=== PATIENT | female | born 2000 | race Caucasian/White ===

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

== ENCOUNTER 2020-06-05 22:10 | Inpatient (IN) ==
[2020-06-05] MEDS ORDERED: SODIUM CHLORIDE 0.9% 1000ML 1,000 ML IV ONE ×2 (22:17→23:14)
--- NOTE | 2020-06-05 22:17 | Emergency Department Note ---
History of Present Illness General Chief complaint: Overdose (Intentional) Stated complaint: OVERDOSE Time Seen by Provider: 06/05/20 22:11 Source: patient and EMS Mode of arrival: EMS Limitations: altered mental status History of Present Illness Provider complaint: intentional overdose This is a 20-year-old female brought in by EMS from home after he reported intentional overdose. EMS reports that they were called after patient intentionally took 12 Advil PMs and drank alcohol one hour ago. They states she is also prescribed Zoloft and Ativan however states she did not take any of those. They also state she drank 4 alcoholic beverages this evening. They state she tells them that this is due to being fired today. Patient reports that she is upset because she went home an hour early on Wednesday after taking Ativan for panic attack and then today was told she was fired. Patient states she loves her job and because of this she tried to intentionally overdose is an active suicide. Patient states she has been treated as an inpatient for mental illness previously. [facility] States she has not followed up with her psychiatrist since then. States last medication jonna prieto was in January when they increased her Zoloft. Patient states the Ativan that she used on Wednesday for panic attack was the last that she had. States tonight she took Advil PM and drink alcohol. Patient denies overdosing on her Zoloft. Patient denies any additional coingestions. Patient admits to being depressed and suicidal due to losing her job. Patient denies any trauma or injury. Pt seen during a time of high acuity and national emergency pandemic while wearing PPE. Home Medications Home Medications Medication Instructions Recorded Confirmed Type Nexplanon 68 mg SUBDERMAL CONTINOUS 10/09/19 06/05/20 History sertraline [Zoloft] 75 mg PO QAM 10/09/19 06/05/20 History folic acid 1 mg PO QAM #7 tab 06/07/20 Rx gabapentin 600 mg PO Q12H #2 tab 06/07/20 Rx gabapentin 600 mg PO Q24H #1 tab 06/07/20 Rx multivitamin 1 tab PO DAILY #30 tab 06/07/20 Rx thiamine HCl (vitamin B1) [Vitamin 100 mg PO QAM #7 tab 06/07/20 Rx B-1] Allergies Allergy/AdvReac Type Severity Reaction Status Date / Time No Known Allergies Allergy Verified 06/05/20 23:04 Past Med/Surg History Medical History Asthma Contusion of right upper extremity (Acute) Dysfunctional uterine bleeding (Acute) IBS (irritable bowel syndrome) Lower abdominal pain (Acute) Pyelonephritis (Acute) Right-sided epistaxis (Acute) UTI (urinary tract infection) (Acute) Surgical History No pertinent past surgical history Family History Other Family history non-contributory Social History Smoking Status: Former smoker Tobacco Type: Smokeless Tobacco (Dip or Chew) Hx Alcohol Use: Yes Alcohol type: beer Hx Substance Use: No Preferred Language: Lao Communication Ability: Effective Visual Impairment: No Limitations Hearing Ability: Normal Beliefs That Will Affect Care: None Current Living Situation: Alone Feels Safe at Home: Yes Review of Systems See HPI for pertinent positives & negatives. and A total of 10 systems reviewed and were otherwise negative Physical Exam Vital Signs Vital Signs - 24 hr 06/05/20 22:15 06/05/20 22:17 06/05/20 22:30 Temperature 36.8 C Temperature Source Oral Pulse Rate 117 H 106 H 118 H Pulse Rate from SpO2 Sensor 116 H 119 H Pulse Rhythm Regular Pulse Strength Normal Respiratory Rate 24 16 26 H Respiratory Effort / Characteristics Non-Labored Respiratory Depth Normal Respiratory Pattern Regular Blood Pressure 136/113 H 139/99 136/99 Blood Pressure Mean 119 112 109 Blood Pressure Position Lying Pulse Oximetry 97 96 99 Oxygen Delivery Method Room Air Sepsis Recent Fever Within 48 Hours No Sepsis New/Unexplained Change in Mental Status N/A Sepsis Action Taken by Nursing No Action Required 06/05/20 22:31 06/05/20 23:00 06/05/20 23:01 Temperature Temperature Source Pulse Rate 113 H 89 88 Pulse Rate from SpO2 Sensor 113 H 88 88 Pulse Rhythm Pulse Strength Respiratory Rate 23 Respiratory Effort / Characteristics Respiratory Depth Respiratory Pattern Blood Pressure 132/90 Blood Pressure Mean 102 Blood Pressure Position Pulse Oximetry 98 97 97 Oxygen Delivery Method Sepsis Recent Fever Within 48 Hours Sepsis New/Unexplained Change in Mental Status Sepsis Action Taken by Nursing 06/05/20 23:30 06/05/20 23:31 06/06/20 00:00 Temperature Temperature Source Pulse Rate 81 83 92 H Pulse Rate from SpO2 Sensor 82 84 91 H Pulse Rhythm Pulse Strength Respiratory Rate 22 24 19 Respiratory Effort / Characteristics Respiratory Depth Respiratory Pattern Blood Pressure 114/66 Blood Pressure Mean 84 Blood Pressure Position Pulse Oximetry 97 98 100 Oxygen Delivery Method Sepsis Recent Fever Within 48 Hours Sepsis New/Unexplained Change in Mental Status Sepsis Action Taken by Nursing 06/06/20 00:10 Temperature Temperature Source Pulse Rate 101 H Pulse Rate from SpO2 Sensor 105 H Pulse Rhythm Pulse Strength Respiratory Rate 21 Respiratory Effort / Characteristics Respiratory Depth Respiratory Pattern Blood Pressure 130/101 H Blood Pressure Mean 113 Blood Pressure Position Pulse Oximetry 98 Oxygen Delivery Method Room Air Sepsis Recent Fever Within 48 Hours Sepsis New/Unexplained Change in Mental Status Sepsis Action Taken by Nursing GENERAL: alert, well appearing, well nourished, no distress, non-toxic, appears intoxicated EYE EXAM: normal conjunctiva, PERRL and EOM's grossly intact OROPHARYNX: no exudate, no erythema, lips, buccal mucosa, and tongue normal and mucous membranes are moist NECK: supple, no nuchal rigidity, no adenopathy, non-tender LUNGS: Clear to auscultation. Normal chest wall mechanics, no w/r/r HEART: no murmurs, S1 normal and S2 normal ABDOMEN: abdomen soft, non-tender, normo-active bowel sounds, no masses, no rebound or guarding. BACK: Back is symmetrical on inspection and there is no deformity, no midline tenderness, no CVA tenderness. SKIN: no rashes and no bruising UPPER EXTREMITIES: upper extremities are grossly normal. FROM, nml pulses b/l. No evidence of trauma or self-harm. LOWER EXTREMITIES: No pitting edema. FROM, nml pulses b/l. No evidence of trauma or self-harm. NEURO EXAM: Awake and alert, able to answer questions, cranial nerves II-XII grossly intact, slightly slurred speech, no gross weakness of arms, no gross weakness of legs. Gross sensation intact. Course Course 2249: Patient now reporting a nurse she took Tylenol PM and Ativan. Did not remember the time. [id number]: There is a friend, Socrates, now at bedside who states he had been with the patient earlier tonight at her house. States that she was upset and drinking red several ill because of losing her job today, however there was no indication to him that she would try to intentionally harm herself. States she did try to harm herself about 6 months ago, but since then he felt she was doing well. He states he left her house before 9, and got home to [place] and got a call from her mother that she had overdosed on her mother was calling 911 and so he turned around and immediately went back up to her house and got there at around 10:00. States when he arrived EMS was already there. He states it was his understanding from her that she took Advil PM. 0020: Discussed with Poison Control. Repeat EKG as a precaution. Diphenhydramine will take 4-6 hours to dissipate, likely during the same time she is sobering up. 0050: Case discussed with Dr. Turpin for additional mgmt. Administered Medications Discontinued Medications Enoxaparin Sodium (Lovenox) 30 mg SQ QAM [facility] Stop: 07/06/20 08:59 Last Admin: 06/07/20 09:19 Dose: 30 mg Documented by: [id number] Admin: 06/06/20 08:25 Dose: 30 mg Documented by: [id number] Folic Acid (Folvite) 1 mg PO QAM [facility] Stop: 07/06/20 08:59 Last Admin: 06/07/20 09:21 Dose: 1 mg Documented by: [id number] Admin: 06/06/20 08:23 Dose: 1 mg Documented by: [id number] Gabapentin (Neurontin) 1,200 mg PO NOW STA Stop: 06/06/20 01:19 Last Admin: 06/06/20 01:40 Dose: 1,200 mg Documented by: [id number] Gabapentin (Neurontin) 600 mg PO Q6H JO[facility] Stop: 06/06/20 13:25 Last Admin: 06/06/20 13:33 Dose: 600 mg Documented by: [id number] Admin: 06/06/20 08:23 Dose: 600 mg Documented by: [id number] Gabapentin (Neurontin) 600 mg PO Q8H JOSE Stop: 06/07/20 13:25 Last Admin: 06/07/20 14:10 Dose: 600 mg Documented by: [id number] Admin: 06/07/20 06:37 Dose: 600 mg Documented by: [id number] Admin: 06/06/20 21:07 Dose: 600 mg Documented by: [id number] Sodium Chloride (Nss 1000ml) 1,000 mls @ 999 mls/hr IV .Q1H1M ONE Stop: 06/05/20 23:17 Last Infusion: 06/05/20 23:36 Dose: 0 mls/hr Documented by: [id number] Admin: 06/05/20 22:40 Dose: 999 mls/hr Documented by: [id number] Sodium Chloride (Nss 1000ml) 1,000 mls @ 999 mls/hr IV .Q1H1M ONE Stop: 06/06/20 00:14 Last Infusion: 06/06/20 01:42 Dose: 0 mls/hr Documented by: [id number] Admin: 06/05/20 23:34 Dose: 999 mls/hr Documented by: [id number] Lactated Ringer's (Lr) 1,000 mls @ 200 mls/hr IV .Q5H STA Stop: 06/06/20 06:12 Last Infusion: 06/06/20 06:12 Dose: 0 mls/hr Documented by: [id number] Admin: 06/06/20 01:40 Dose: 200 mls/hr Documented by: [id number] Thiamine HCl 100 mg/ Syringe 10 mls @ 2 mls/min IV NOW STA Stop: 06/06/20 01:30 Last Admin: 06/06/20 01:41 Dose: 2 mls/min Documented by: [id number] Lactated Ringer's (Lr) 1,000 mls @ 100 mls/hr IV .Q10H JOSE Stop: 06/07/20 05:59 Last Infusion: 06/07/20 12:48 Dose: 0 mls/hr Documented by: [id number] Admin: 06/07/20 01:35 Dose: 100 mls/hr Documented by: [id number] Infusion: 06/07/20 01:35 Dose: 100 mls/hr Documented by: [id number] Admin: 06/06/20 16:09 Dose: 100 mls/hr Documented by: [id number] Infusion: 06/06/20 16:09 Dose: 200 mls/hr Documented by: [id number] Admin: 06/06/20 11:20 Dose: 200 mls/hr Documented by: [id number] Infusion: 06/06/20 11:11 Dose: 200 mls/hr Documented by: [id number] Admin: 06/06/20 06:11 Dose: 200 mls/hr Documented by: [id number] Potassium Chloride (Klor-Con M20) 40 meq PO NOW STA Stop: 06/05/20 23:27 Last Admin: 06/05/20 23:34 Dose: 40 meq Documented by: [id number] Potassium Chloride (Klor-Con M20) 40 meq PO ONE STA Stop: 06/06/20 01:22 Last Admin: 06/06/20 01:41 Dose: 40 meq Documented by: [id number] [facility] Stop: 07/06/20 08:59 Last Admin: 06/07/20 09:19 Dose: 75 mg Documented by: [id number] Admin: 06/06/20 08:23 Dose: 75 mg Documented by: [id number] Thiamine HCl (Vitamin B-1) [facility] Stop: 07/07/20 08:59 Last Admin: 06/07/20 09:21 Dose: 100 mg Documented by: [id number] Medical Decision Making Differential Diagnosis Differential diagnoses considered include mood disorder, infection, hypoglycemia, electrolyte abnormalities, cardiac sources, intracerebral event, toxicologic, neurologic, as well as others. Medical Records Attestation: I reviewed the patient's medical records. Home Medications Current Medication List: was personally reviewed by me Laboratory Data Attestation: I reviewed the patient's lab results. Result diagrams: 06/07/20 12:47 06/07/20 12:47 Lab Results 06/05/20 06/05/20 06/05/20 Range/Units 22:33 22:33 22:33 WBC 6.52 (4.8-10.8) K/uL RBC 4.55 (4.2-5.4) M/uL Hgb 15.0 (12.0-16.0) g/dL Hct 42.9 (37-47) % MCV 94.3 (80-100) fL MCH 33.0 (25-34) pg MCHC 35.0 (32-36) g/dL RDW Std Deviation 42.8 (36.4-46.3) fL RDW Coeff of Arun 12.6 (11.5-14.5) % Plt Count 218 (130-400) K/uL MPV 10.5 H (7.4-10.4) fL Immature Gran % (Auto) 0.2 % Neut % (Auto) 52.6 % Lymph % (Auto) 36.0 % [place] % (Auto) 10.3 % Eos % (Auto) 0.6 % Baso % (Auto) 0.3 % Neut # (Auto) 3.43 (1.4-6.5) K/uL Lymph # (Auto) 2.35 (1.2-3.4) K/uL [place] # (Auto) 0.67 H (0.11-0.59) K/uL Eos # (Auto) 0.04 (0-0.5) K/uL Baso # (Auto) 0.02 (0-0.2) K/uL Immature Gran # (Auto) 0.01 (0.00-0.02) K/uL PT 11.4 (9.0-12.0) Seconds INR 1.1 (0.9-1.1) Sodium 138 (136-145) mmol/L Potassium 2.7 L (3.5-5.1) mmol/L Chloride 106 (98-107) mmol/L Carbon Dioxide 25 (21-32) mmol/L Anion Gap 7.0 (3-11) BUN 6 L (7-18) mg/dl Creatinine 0.91 (0.6-1.2) mg/dl Est Cr Clr Drug Dosing 81.1 ml/min Est GFR ( Amer) 103.8 Est GFR (Non-Af Amer) 89.6 BUN/Creatinine Ratio 6.8 L (10-20) Glucose 126 H (70-99) mg/dl Calcium 9.1 (8.5-10.1) mg/dl Magnesium 2.6 H (1.8-2.4) mg/dl Total Bilirubin 0.4 (0.2-1) mg/dl AST 22 (15-37) U/L ALT 19 (12-78) U/L Alkaline Phosphatase 89 (45-117) U/L Troponin I < 0.015 (0-0.045) ng/ml Total Protein 8.7 H (6.4-8.2) gm/dl Albumin 4.4 (3.4-5.0) gm/dl Globulin 4.3 H (2.5-4.0) gm/dl Albumin/Globulin Ratio 1.0 (0.9-2) Lipase 1223 H (73-393) U/L TSH 1.040 (0.300-4.500) uIu/ml HCG, Qual (Negative) Urine Color Urine Appearance (Clear) Urine pH (4.5-7.5) Ur Specific [place] (1.000-1.030) Urine Protein (Negative) Urine Glucose (UA) (Negative) Urine Ketones (Negative) Urine Blood (Negative) Urine Nitrite (Negative) Urine Bilirubin (Negative) Urine Urobilinogen (Negative) Ur Leukocyte Esterase (Negative) Salicylates (2.8-20) mg/dl Urine Opiates Screen (Neg) Ur Methadone, Qual (Neg) Acetaminophen (10-30) ug/ml Urine Barbiturates (Neg) Ur Phencyclidine (PCP) (Neg) U Amphetamin/Meth Scrn (Neg) MDMA (Ecstasy) Screen (Neg) U Benzodiazepines Scrn (Neg) Ur Cocaine Metabolite (Neg) U Marijuana (THC) Screen (Neg) Ethyl Alcohol mg/dL (0-3) mg/dl 06/05/20 06/05/20 06/05/20 Range/Units 22:33 22:33 22:36 WBC (4.8-10.8) K/uL RBC (4.2-5.4) M/uL Hgb (12.0-16.0) g/dL Hct (37-47) % MCV (80-100) fL MCH (25-34) pg MCHC (32-36) g/dL RDW Std Deviation (36.4-46.3) fL RDW Coeff of Arun (11.5-14.5) % Plt Count (130-400) K/uL MPV (7.4-10.4) fL Immature Gran % (Auto) % Neut % (Auto) % Lymph % (Auto) % [place] % (Auto) % Eos % (Auto) % Baso % (Auto) % Neut # (Auto) (1.4-6.5) K/uL Lymph # (Auto) (1.2-3.4) K/uL [place] # (Auto) (0.11-0.59) K/uL Eos # (Auto) (0-0.5) K/uL Baso # (Auto) (0-0.2) K/uL Immature Gran # (Auto) (0.00-0.02) K/uL PT (9.0-12.0) Seconds INR (0.9-1.1) Sodium (136-145) mmol/L Potassium (3.5-5.1) mmol/L Chloride (98-107) mmol/L Carbon Dioxide (21-32) mmol/L Anion Gap (3-11) BUN (7-18) mg/dl Creatinine (0.6-1.2) mg/dl Est Cr Clr Drug Dosing ml/min Est GFR ( Amer) Est GFR (Non-Af Amer) BUN/Creatinine Ratio (10-20) Glucose (70-99) mg/dl Calcium (8.5-10.1) mg/dl Magnesium (1.8-2.4) mg/dl Total Bilirubin (0.2-1) mg/dl AST (15-37) U/L ALT (12-78) U/L Alkaline Phosphatase (45-117) U/L Troponin I (0-0.045) ng/ml Total Protein (6.4-8.2) gm/dl Albumin (3.4-5.0) gm/dl Globulin (2.5-4.0) gm/dl Albumin/Globulin Ratio (0.9-2) Lipase (73-393) U/L TSH (0.300-4.500) uIu/ml HCG, Qual Negative (Negative) Urine Color Urine Appearance (Clear) Urine pH (4.5-7.5) Ur Specific [place] (1.000-1.030) Urine Protein (Negative) Urine Glucose (UA) (Negative) Urine Ketones (Negative) Urine Blood (Negative) Urine Nitrite (Negative) Urine Bilirubin (Negative) Urine Urobilinogen (Negative) Ur Leukocyte Esterase (Negative) Salicylates < 1.7 L (2.8-20) mg/dl Urine Opiates Screen (Neg) Ur Methadone, Qual (Neg) Acetaminophen < 2 L (10-30) ug/ml Urine Barbiturates (Neg) Ur Phencyclidine (PCP) (Neg) U Amphetamin/Meth Scrn (Neg) MDMA (Ecstasy) Screen (Neg) U Benzodiazepines Scrn (Neg) Ur Cocaine Metabolite (Neg) U Marijuana (THC) Screen (Neg) Ethyl Alcohol mg/dL 341.3 H (0-3) mg/dl 06/05/20 06/05/20 Range/Units 22:45 22:45 WBC (4.8-10.8) K/uL RBC (4.2-5.4) M/uL Hgb (12.0-16.0) g/dL Hct (37-47) % MCV (80-100) fL MCH (25-34) pg MCHC (32-36) g/dL RDW Std Deviation (36.4-46.3) fL RDW Coeff of Arun (11.5-14.5) % Plt Count (130-400) K/uL MPV (7.4-10.4) fL Immature Gran % (Auto) % Neut % (Auto) % Lymph % (Auto) % [place] % (Auto) % Eos % (Auto) % Baso % (Auto) % Neut # (Auto) (1.4-6.5) K/uL Lymph # (Auto) (1.2-3.4) K/uL [place] # (Auto) (0.11-0.59) K/uL Eos # (Auto) (0-0.5) K/uL Baso # (Auto) (0-0.2) K/uL Immature Gran # (Auto) (0.00-0.02) K/uL PT (9.0-12.0) Seconds INR (0.9-1.1) Sodium (136-145) mmol/L Potassium (3.5-5.1) mmol/L Chloride (98-107) mmol/L Carbon Dioxide (21-32) mmol/L Anion Gap (3-11) BUN (7-18) mg/dl Creatinine (0.6-1.2) mg/dl Est Cr Clr Drug Dosing ml/min Est GFR ( Amer) Est GFR (Non-Af Amer) BUN/Creatinine Ratio (10-20) Glucose (70-99) mg/dl Calcium (8.5-10.1) mg/dl Magnesium (1.8-2.4) mg/dl Total Bilirubin (0.2-1) mg/dl AST (15-37) U/L ALT (12-78) U/L Alkaline Phosphatase (45-117) U/L Troponin I (0-0.045) ng/ml Total Protein (6.4-8.2) gm/dl Albumin (3.4-5.0) gm/dl Globulin (2.5-4.0) gm/dl Albumin/Globulin Ratio (0.9-2) Lipase (73-393) U/L TSH (0.300-4.500) uIu/ml HCG, Qual (Negative) Urine Color Yellow Urine Appearance Clear (Clear) Urine pH 6.5 (4.5-7.5) Ur Specific [place] 1.006 (1.000-1.030) Urine Protein Negative (Negative) Urine Glucose (UA) Negative (Negative) Urine Ketones Negative (Negative) Urine Blood Negative (Negative) Urine Nitrite Negative (Negative) Urine Bilirubin Negative (Negative) Urine Urobilinogen Negative (Negative) Ur Leukocyte Esterase Negative (Negative) Salicylates (2.8-20) mg/dl Urine Opiates Screen Neg (Neg) Ur Methadone, Qual Neg (Neg) Acetaminophen (10-30) ug/ml Urine Barbiturates Neg (Neg) Ur Phencyclidine (PCP) Neg (Neg) U Amphetamin/Meth Scrn Neg (Neg) MDMA (Ecstasy) Screen Neg (Neg) U Benzodiazepines Scrn Neg (Neg) Ur Cocaine Metabolite Neg (Neg) U Marijuana (THC) Screen Neg (Neg) Ethyl Alcohol mg/dL (0-3) mg/dl Imaging Data My Impression: X-ray: I interpreted the following studies. Chest: A single view study of the chest was reviewed and was negative for cardiomegaly, focal infiltrate, effusion, pulmonary edema, or wide mediastinum. by: Israel Lucero M.D. ECG Data Attestation: I personally reviewed and interpreted this ECG as follows: Indication: + altered mental status Rate (beats per minute): 99 Rhythm: + normal sinus ECG Intervals/blocks: + Normal QRS and + Normal QT ECG [place]: + Normal ECG ST segments: + Normal ST segments Additional Comments: Repeat EKG at 00 30 showed a normal sinus rhythm at 86, normal GA interval, QRS 82, QTc 442, normal axis, no acute ectopy or ST changes. Blood Pressure Blood Pressure Findings: Elevated blood pressure Blood Pressure Disposition: further management by hospitalist REENA Ramírez An order was placed for continuous cardiac monitoring. The monitor shows a rate of 103 with sinus tachycardia rhythm. Patient presents following an intentional overdose this evening. Patient admitted to taking a handful of Advil PM in addition to consuming alcohol after losing her job today. Patient with evidence of alcohol intoxication. Labs drawn and sent, patient started on IV fluids. Patient very intoxicated, however other markers that are able to be tested were negative. Patient initially tachycardic, although I suspect this is a combination of her ingestion, alcohol, dehydration, and anxiety. When patient was calmed and redirected, this would return to a normal sinus rhythm. Patient's EKG did not show any evidence of QRS or QTC prolongation. Patient's labs were otherwise reassuring. Patient was noted to have an elevation of her lipase, however her other LFTs and renal function testing was normal. Patient had mild nausea with palpation of her upper abdomen however no discrete pain. Given the significantly elevated alcohol level, I feel this is likely an alcohol induced pancreatitis. I deferred any additional and imaging to the hospitalist given she has no prior history of pancreatitis. Case discussed with hospitalist for additional monitoring medically until she can be cleared for psychiatric evaluation. I did discuss the case with poison control as a precaution, they stated no other specific treatment except for careful monitoring and a repeat EKG which I performed and was unremarkable. Impression & Plan Suicide attempt by multiple drug overdose, Alcohol intoxication, Pancreatitis, alcoholic, acute Discharge Plan Visit Data *Final* Discharge Date/Time: 06/06/20 02:00 Chief Complaint: Overdose (Intentional) Stated Complaint: OVERDOSE ED Provider: Oma aKy Discharge Problem: Suicide attempt by multiple drug overdose, Alcohol intoxication, Pancreatitis, alcoholic, acute Patient Disposition: Admitted As Inpatient Discharge Problem: Suicide attempt by multiple drug overdose Qualifiers: Encounter type: initial encounter Qualified Code(s): T50.912A - Poisoning by multiple unspecified drugs, medicaments and biological substances, intentional self-harm, initial encounter Alcohol intoxication Qualifiers: Complication of substance-induced condition: uncomplicated Qualified Code(s): F10.920 - Alcohol use, unspecified with intoxication, uncomplicated Pancreatitis, alcoholic, acute Qualifiers: Acute pancreatitis complication: unspecified Qualified Code(s): K85.20 - Alcohol induced acute pancreatitis without necrosis or infection
[2020-06-05 22:53] LABS: Basophils # (auto) 0.02 K/uL (0-0.2); Basophils % (auto) 0.3 %; Eosinophils # (auto) 0.04 K/uL (0-0.5); Eosinophils % (auto) 0.6 %; Hematocrit (blood only) 42.9 % (37-47); Immature Granulocytes # (auto) 0.01 K/uL (0.00-0.02); Immature Granulocytes % (auto) 0.2 %; Lymphocytes # (auto) 2.35 K/uL (1.2-3.4); Mean Corpuscular Volume 94.3 fL (80-100); Mean Platelet Volume 10.5 fL (7.4-10.4); Monocytes # (auto) 0.67 K/uL (0.11-0.59); Monocytes % (auto) 10.3 %; Neutrophils # (auto) 3.43 K/uL (1.4-6.5); Neutrophils % (auto) 52.6 %; Platelet Count 218 K/uL (130-400); RDW Coefficient of Variation 12.6 % (11.5-14.5); RDW Standard Deviation 42.8 fL (36.4-46.3); Red Blood Count 4.55 M/uL (4.2-5.4); White Blood Count 6.52 K/uL (4.8-10.8)
[2020-06-05 23:00] LABS: Appearance Urine Clear (Clear); Bilirubin Urine Negative (Negative); Blood Urine Negative (Negative); Color Urine Yellow; Glucose Urine UA Negative (Negative); Ketones Urine Negative (Negative); Leukocyte Esterase Urine Negative (Negative); Nitrite Urine Negative (Negative); Protein Urine Negative (Negative); Specific Gravity Urine 1.006 (1.000-1.030); Urobilinogen Urine Negative (Negative); pH Urine 6.5 (4.5-7.5)
[2020-06-05 23:01] LABS: INR 1.1 (0.9-1.1); Prothrombin Time 11.4 Seconds (9.0-12.0)
[2020-06-05 23:10] LABS: Alanine Aminotransferase 19 U/L (12-78); Albumin Level 4.4 gm/dl (3.4-5.0); Aspartate Aminotransferase 22 U/L (15-37); BUN Creatinine Ratio 6.8 (10-20); Blood Urea Nitrogen 6 mg/dl (7-18); Calcium 9.1 mg/dl (8.5-10.1); Carbon Dioxide 25 mmol/L (21-32); Chloride 106 mmol/L (98-107); Creatinine Clr Calc Pharmacy 81.1 ml/min; Est GFR (African American) 103.8; Est GFR (Non-African American) 89.6; Glucose 126 mg/dl (70-99); Lipase 1223 U/L (73-393); Magnesium 2.6 mg/dl (1.8-2.4); Potassium 2.7 mmol/L (3.5-5.1); Sodium 138 mmol/L (136-145)
[2020-06-05 23:15] LABS: Pregnancy Test, Serum Negative (Negative)
[2020-06-05 23:21] LABS: Alkaline Phosphatase 89 U/L (45-117); Bilirubin,Total 0.4 mg/dl (0.2-1); Globulin 4.3 gm/dl (2.5-4.0); Total Protein 8.7 gm/dl (6.4-8.2); Troponin I < 0.015 ng/ml (0-0.045)
[2020-06-05 23:23] LABS: Amphetamines+Metham, Urine Neg (Neg); Barbiturates, Urine Neg (Neg); Benzodiazepine, Urine Neg (Neg); Cocaine, Urine Neg (Neg); MDMA (Ecstacy), Urine Neg (Neg); Methadone, Urine Neg (Neg); Opiate, Urine Neg (Neg); Phencyclidine, Urine Neg (Neg)
[2020-06-05 23:25] LABS: Acetaminophen < 2 ug/ml (10-30)
[2020-06-05 23:26] LABS: Salicylate < 1.7 mg/dl (2.8-20)
[2020-06-05] MEDS ORDERED: POTASSIUM CHLORIDE 20 MEQ TABCR PO STA (23:26)
[2020-06-06] MEDS ORDERED: LACTATED RINGER'S 1,000 ML IV STA (01:13)
[2020-06-06] MEDS ORDERED: GABAPENTIN 600 MG TAB PO STA (01:18)
--- NOTE | 2020-06-06 01:18 | History & Physical Report ---
Date of Service June 06, 2020 Assessment & Plan (1) Drug overdose: Advil PM (NSAID-antihistaminic OTC combo agent) ? Suicidal intent Alcohol abuse Asymptomatic lipase elevation, possible alcoholic pancreatitis Hypokalemia secondary to diarrhea rule out C. difficile given workplace exposure Medical telemetry Follow Toxicology recommendations One-to-one/suicide precautions for now until patient evaluated by Psychiatry DT precautions/AWSS Replace potassium Stool C. difficile DVT prophylaxis Lovenox subcu Full code Text document was generated using [employer] voice recognition software. It may contain grammatical or spelling errors. Kindly contact undersigned for clarification of any documentation item in question. History of Present Illness Chief Complaint: Drug overdose Primary Care Provider: Juju Castellanos DO History obtained from patient and records. Medical history significant for GERD, anxiety/mood disorder, alcohol abuse. Last confinement March 2017 for complicated UTI. 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 Patient took 10 tablets of Advil PM along with some alcohol because she wanted to relax and she was out of her Ativan. Denies suicidal intent. Patient denies chest pain, S OB, abdominal pain. Loose stools, nonbloody. Recent outpatient COVID 19 swab (routine workplace requirement) from 06/03 was negative as per patient. Patient later on told mother of drug ingestion. Patient brought to the ER for evaluation. Medical History as above No prior history of alcohol withdrawal seizures. Surgical History : Discussed doing reconstruction Family History : Diabetes, breast cancer, lung cancer, kidney stones Personal/Social history : Non-smoker, alcohol abuse, [employer]OR Allergies Allergy/AdvReac Type Severity Reaction Status Date / Time No Known Allergies Allergy Verified 06/05/20 23:04 Home Medications Home Medications Medication Instructions Recorded Confirmed Type etonogestrel [Nexplanon] 68 mg SUBDERMAL CONTINOUS 10/09/19 06/05/20 History lorazepam [Ativan] 0.5 mg PO DAILY PRN 10/09/19 06/05/20 History sertraline [Zoloft] 75 mg PO QAM 10/09/19 06/05/20 History Past Med/Surg History Social History Smoking Status: Former smoker Tobacco Type: Smokeless Tobacco (Dip or Chew) Hx Alcohol Use: Yes Alcohol type: beer Hx Substance Use: No Preferred Language: Brazilian Communication Ability: Effective Visual Impairment: No Limitations Hearing Ability: Normal Beliefs That Will Affect Care: None Current Living Situation: Alone Feels Safe at Home: Yes Safety Concerns: Feels Safe At This Time Review of Systems Review of Systems: As per HPI, all 10 systems reviewed, all other ROS negative Physical Exam Physical Exam: GENERAL: Somewhat restless, no respiratory distress, episodic facial grimacing/left eye pronounced blinking (chronic as per patient) SKIN: Normal color, warm HEENT: [place] palpebral conjunctivae, no ptosis, dry buccal mucosa NECK : Supple, no tenderness CHEST : CTA, no tenderness HEART : RRR, no obvious murmurs ABDOMEN: Soft, nontender EXTREMITIES : No LE swelling/tenderness, no other conspicuous deformities noted NEUROLOGIC : Coherent, no facial asymmetry, no other gross focality Results & Data Results & Data ([facility]) Vital Signs (Past 12 Hours) Vital Signs Temp Pulse Resp BP Pulse Ox 06/06/20 00:10 101 H 21 130/101 H 98 06/06/20 00:00 92 H 19 100 06/05/20 23:31 83 24 98 06/05/20 23:30 81 22 114/66 97 06/05/20 23:01 88 97 06/05/20 23:00 89 132/90 97 06/05/20 22:31 113 H 23 98 06/05/20 22:30 118 H 26 H 136/99 99 06/05/20 22:17 36.8 C 106 H 16 139/99 96 06/05/20 22:15 117 H 24 136/113 H 97 Laboratory Results Lab Results 06/05/20 06/05/20 06/05/20 Range/Units 22:33 22:33 22:33 WBC 6.52 (4.8-10.8) K/uL RBC 4.55 (4.2-5.4) M/uL Hgb 15.0 (12.0-16.0) g/dL Hct 42.9 (37-47) % MCV 94.3 (80-100) fL MCH 33.0 (25-34) pg MCHC 35.0 (32-36) g/dL RDW Std Deviation 42.8 (36.4-46.3) fL RDW Coeff of Arun 12.6 (11.5-14.5) % Plt Count 218 (130-400) K/uL MPV 10.5 H (7.4-10.4) fL Immature Gran % (Auto) 0.2 % Neut % (Auto) 52.6 % Lymph % (Auto) 36.0 % [place] % (Auto) 10.3 % Eos % (Auto) 0.6 % Baso % (Auto) 0.3 % Neut # (Auto) 3.43 (1.4-6.5) K/uL Lymph # (Auto) 2.35 (1.2-3.4) K/uL [place] # (Auto) 0.67 H (0.11-0.59) K/uL Eos # (Auto) 0.04 (0-0.5) K/uL Baso # (Auto) 0.02 (0-0.2) K/uL Immature Gran # (Auto) 0.01 (0.00-0.02) K/uL PT 11.4 (9.0-12.0) Seconds INR 1.1 (0.9-1.1) Sodium 138 (136-145) mmol/L Potassium 2.7 L (3.5-5.1) mmol/L Chloride 106 (98-107) mmol/L Carbon Dioxide 25 (21-32) mmol/L Anion Gap 7.0 (3-11) BUN 6 L (7-18) mg/dl Creatinine 0.91 (0.6-1.2) mg/dl Est Cr Clr Drug Dosing 81.1 ml/min Est GFR ( Amer) 103.8 Est GFR (Non-Af Amer) 89.6 BUN/Creatinine Ratio 6.8 L (10-20) Glucose 126 H (70-99) mg/dl Calcium 9.1 (8.5-10.1) mg/dl Magnesium 2.6 H (1.8-2.4) mg/dl Total Bilirubin 0.4 (0.2-1) mg/dl AST 22 (15-37) U/L ALT 19 (12-78) U/L Alkaline Phosphatase 89 (45-117) U/L Troponin I < 0.015 (0-0.045) ng/ml Total Protein 8.7 H (6.4-8.2) gm/dl Albumin 4.4 (3.4-5.0) gm/dl Globulin 4.3 H (2.5-4.0) gm/dl Albumin/Globulin Ratio 1.0 (0.9-2) Lipase 1223 H (73-393) U/L TSH 1.040 (0.300-4.500) uIu/ml HCG, Qual (Negative) Urine Color Urine Appearance (Clear) Urine pH (4.5-7.5) Ur Specific [place] (1.000-1.030) Urine Protein (Negative) Urine Glucose (UA) (Negative) Urine Ketones (Negative) Urine Blood (Negative) Urine Nitrite (Negative) Urine Bilirubin (Negative) Urine Urobilinogen (Negative) Ur Leukocyte Esterase (Negative) Salicylates (2.8-20) mg/dl Urine Opiates Screen (Neg) Ur Methadone, Qual (Neg) Acetaminophen (10-30) ug/ml Urine Barbiturates (Neg) Ur Phencyclidine (PCP) (Neg) U Amphetamin/Meth Scrn (Neg) MDMA (Ecstasy) Screen (Neg) U Benzodiazepines Scrn (Neg) Ur Cocaine Metabolite (Neg) U Marijuana (THC) Screen (Neg) Ethyl Alcohol mg/dL (0-3) mg/dl 06/05/20 06/05/20 06/05/20 Range/Units 22:33 22:33 22:36 WBC (4.8-10.8) K/uL RBC (4.2-5.4) M/uL Hgb (12.0-16.0) g/dL Hct (37-47) % MCV (80-100) fL MCH (25-34) pg MCHC (32-36) g/dL RDW Std Deviation (36.4-46.3) fL RDW Coeff of Arun (11.5-14.5) % Plt Count (130-400) K/uL MPV (7.4-10.4) fL Immature Gran % (Auto) % Neut % (Auto) % Lymph % (Auto) % [place] % (Auto) % Eos % (Auto) % Baso % (Auto) % Neut # (Auto) (1.4-6.5) K/uL Lymph # (Auto) (1.2-3.4) K/uL [place] # (Auto) (0.11-0.59) K/uL Eos # (Auto) (0-0.5) K/uL Baso # (Auto) (0-0.2) K/uL Immature Gran # (Auto) (0.00-0.02) K/uL PT (9.0-12.0) Seconds INR (0.9-1.1) Sodium (136-145) mmol/L Potassium (3.5-5.1) mmol/L Chloride (98-107) mmol/L Carbon Dioxide (21-32) mmol/L Anion Gap (3-11) BUN (7-18) mg/dl Creatinine (0.6-1.2) mg/dl Est Cr Clr Drug Dosing ml/min Est GFR ( Amer) Est GFR (Non-Af Amer) BUN/Creatinine Ratio (10-20) Glucose (70-99) mg/dl Calcium (8.5-10.1) mg/dl Magnesium (1.8-2.4) mg/dl Total Bilirubin (0.2-1) mg/dl AST (15-37) U/L ALT (12-78) U/L Alkaline Phosphatase (45-117) U/L Troponin I (0-0.045) ng/ml Total Protein (6.4-8.2) gm/dl Albumin (3.4-5.0) gm/dl Globulin (2.5-4.0) gm/dl Albumin/Globulin Ratio (0.9-2) Lipase (73-393) U/L TSH (0.300-4.500) uIu/ml HCG, Qual Negative (Negative) Urine Color Urine Appearance (Clear) Urine pH (4.5-7.5) Ur Specific [place] (1.000-1.030) Urine Protein (Negative) Urine Glucose (UA) (Negative) Urine Ketones (Negative) Urine Blood (Negative) Urine Nitrite (Negative) Urine Bilirubin (Negative) Urine Urobilinogen (Negative) Ur Leukocyte Esterase (Negative) Salicylates < 1.7 L (2.8-20) mg/dl Urine Opiates Screen (Neg) Ur Methadone, Qual (Neg) Acetaminophen < 2 L (10-30) ug/ml Urine Barbiturates (Neg) Ur Phencyclidine (PCP) (Neg) U Amphetamin/Meth Scrn (Neg) MDMA (Ecstasy) Screen (Neg) U Benzodiazepines Scrn (Neg) Ur Cocaine Metabolite (Neg) U Marijuana (THC) Screen (Neg) Ethyl Alcohol mg/dL 341.3 H (0-3) mg/dl 06/05/20 06/05/20 Range/Units 22:45 22:45 WBC (4.8-10.8) K/uL RBC (4.2-5.4) M/uL Hgb (12.0-16.0) g/dL Hct (37-47) % MCV (80-100) fL MCH (25-34) pg MCHC (32-36) g/dL RDW Std Deviation (36.4-46.3) fL RDW Coeff of Arun (11.5-14.5) % Plt Count (130-400) K/uL MPV (7.4-10.4) fL Immature Gran % (Auto) % Neut % (Auto) % Lymph % (Auto) % [place] % (Auto) % Eos % (Auto) % Baso % (Auto) % Neut # (Auto) (1.4-6.5) K/uL Lymph # (Auto) (1.2-3.4) K/uL [place] # (Auto) (0.11-0.59) K/uL Eos # (Auto) (0-0.5) K/uL Baso # (Auto) (0-0.2) K/uL Immature Gran # (Auto) (0.00-0.02) K/uL PT (9.0-12.0) Seconds INR (0.9-1.1) Sodium (136-145) mmol/L Potassium (3.5-5.1) mmol/L Chloride (98-107) mmol/L Carbon Dioxide (21-32) mmol/L Anion Gap (3-11) BUN (7-18) mg/dl Creatinine (0.6-1.2) mg/dl Est Cr Clr Drug Dosing ml/min Est GFR ( Amer) Est GFR (Non-Af Amer) BUN/Creatinine Ratio (10-20) Glucose (70-99) mg/dl Calcium (8.5-10.1) mg/dl Magnesium (1.8-2.4) mg/dl Total Bilirubin (0.2-1) mg/dl AST (15-37) U/L ALT (12-78) U/L Alkaline Phosphatase (45-117) U/L Troponin I (0-0.045) ng/ml Total Protein (6.4-8.2) gm/dl Albumin (3.4-5.0) gm/dl Globulin (2.5-4.0) gm/dl Albumin/Globulin Ratio (0.9-2) Lipase (73-393) U/L TSH (0.300-4.500) uIu/ml HCG, Qual (Negative) Urine Color Yellow Urine Appearance Clear (Clear) Urine pH 6.5 (4.5-7.5) Ur Specific [place] 1.006 (1.000-1.030) Urine Protein Negative (Negative) Urine Glucose (UA) Negative (Negative) Urine Ketones Negative (Negative) Urine Blood Negative (Negative) Urine Nitrite Negative (Negative) Urine Bilirubin Negative (Negative) Urine Urobilinogen Negative (Negative) Ur Leukocyte Esterase Negative (Negative) Salicylates (2.8-20) mg/dl Urine Opiates Screen Neg (Neg) Ur Methadone, Qual Neg (Neg) Acetaminophen (10-30) ug/ml Urine Barbiturates Neg (Neg) Ur Phencyclidine (PCP) Neg (Neg) U Amphetamin/Meth Scrn Neg (Neg) MDMA (Ecstasy) Screen Neg (Neg) U Benzodiazepines Scrn Neg (Neg) Ur Cocaine Metabolite Neg (Neg) U Marijuana (THC) Screen Neg (Neg) Ethyl Alcohol mg/dL (0-3) mg/dl Diagnostic Findings Chest x-ray : Atelectasis, elevated right hemidiaphragm EKG as per my interpretation : Rate 100, NSR, normal axis, incomplete right bundle branch block, no ischemia
[2020-06-06] MEDS ORDERED: POTASSIUM CHLORIDE 20 MEQ TABCR PO STA (01:21)
[2020-06-06] MEDS ORDERED: THIAMINE HCL 100 MG in SYRINGE 9 ML IV STA (01:26)
[2020-06-06] MEDS ORDERED: ACETAMINOPHEN 325 MG TAB PO PRN (04:02)
[2020-06-06] MEDS ORDERED: ATIVAN IV ALCOHOL WITHDRAWL IV PRN (04:02)
[2020-06-06] MEDS ORDERED: LORazepam 2 MG/4 ML VIAL IV PRN (04:02)
[2020-06-06] MEDS ORDERED: PROMETHAZINE HCL 12.5 MG in SODIUM CHLORIDE 0.9% 50 ML IV PRN (04:02)
[2020-06-06] MEDS ORDERED: OXYCODONE HCL IR 5 MG TAB (IMMEDIATE RELEASE) PO PRN (04:02)
[2020-06-06] MEDS ORDERED: LORazepam 1 MG/2 ML VIAL IV PRN (04:02)
[2020-06-06] MEDS ORDERED: LORazepam 3 MG/6 ML VIAL IV PRN (04:02)
[2020-06-06] MEDS ORDERED: GABAPENTIN 1200MG ALCOHOL WITHDRAWAL LOAD PO STA (04:02)
[2020-06-06] MEDS: LACTATED RINGER'S 1,000 ML IV SCH ×3 (06:11→16:09)
--- NOTE | 2020-06-06 07:37 | XRay Report ---
XR chest 1V portable CLINICAL HISTORY: overdose COMPARISON STUDY: 06/15/2016 FINDINGS: The cardiac and mediastinal contours are normal. There is no evidence of focal pulmonary co nsolidation. There is no evidence of failure. No pleural effusions are visualized.[ IMPRESSION: No active disease in the chest. ACT 112: Negative or not required by law. Electronically signed by: Milton Valadez M.D. 06/06/2020 7:36 AM
[2020-06-06] MEDS: FOLIC ACID 1 MG TAB PO SCH (08:23)
[2020-06-06] MEDS: SERTRALINE HCL 50 MG TABLET PO SCH (08:23)
[2020-06-06] MEDS: GABAPENTIN 600 MG TAB PO SCH ×3 (08:23→21:07)
[2020-06-06] MEDS: ENOXAPARIN INJ 30 MG/0.3 ML SYR SQ SCH (08:25)
[2020-06-06 08:31] LABS: Basophils # (auto) 0.02 K/uL (0-0.2); Basophils % (auto) 0.4 %; Eosinophils # (auto) 0.08 K/uL (0-0.5); Eosinophils % (auto) 1.5 %; Hemoglobin 12.2 g/dL (12.0-16.0); Immature Granulocytes # (auto) 0.01 K/uL (0.00-0.02); Immature Granulocytes % (auto) 0.2 %; Lymphocytes # (auto) 2.51 K/uL (1.2-3.4); Lymphocytes % (auto) 48.4 %; Mean Corpuscular Hemoglobin 32.5 pg (25-34); Mean Corpuscular Volume 98.7 fL (80-100); Monocytes # (auto) 0.52 K/uL (0.11-0.59); Neutrophils # (auto) 2.05 K/uL (1.4-6.5); Neutrophils % (auto) 39.5 %; Platelet Count 184 K/uL (130-400); RDW Coefficient of Variation 12.9 % (11.5-14.5); RDW Standard Deviation 46.1 fL (36.4-46.3); Red Blood Count 3.75 M/uL (4.2-5.4); White Blood Count 5.19 K/uL (4.8-10.8)
--- NOTE | 2020-06-06 08:56 | Electrocardiogram Report ---
Test Reason : Blood Pressure : / mmHG Vent. Rate : 099 BPM Atrial Rate : 099 BPM P-R Int : 132 ms QRS Dur : 086 ms QT Int : 328 ms P-R-T Axes : 062 068 032 degrees QTc Int : 420 ms Normal sinus rhythm Incomplete right bundle branch block Nonspecific ST abnormality Anterior leads Abnormal ECG When compared with ECG of 09-OCT-2019 22:39, Vent. rate has increased BY [address] now depressed in Anterior leads Confirmed by Louis Villareal ([id number]) on 06/06/2020 8:56:07 AM Referred By: REFERRED SELF Confirmed By:Louis Villareal
--- NOTE | 2020-06-06 08:57 | Electrocardiogram Report ---
Test Reason : Blood Pressure : / mmHG Vent. Rate : 086 BPM Atrial Rate : 086 BPM P-R Int : 136 ms QRS Dur : 082 ms QT Int : 370 ms P-R-T Axes : 062 069 027 degrees QTc Int : 442 ms Normal sinus rhythm Normal ECG When compared with ECG of 05-JUN-2020 22:24, Nonspecific ST abnormality Anterior leads no longer present Confirmed by Louis Villareal ([id number]) on 06/06/2020 8:57:14 AM Referred By: REFERRED SELF Confirmed By:Louis Villareal
[2020-06-06 09:00] LABS: Estimated Average Glucose 94 mg/dl; Hemoglobin A1C 4.9 % (4.5-5.6)
[2020-06-06 09:23] LABS: Albumin Level 3.1 gm/dl (3.4-5.0); BUN Creatinine Ratio 5.7 (10-20); Bilirubin,Total 0.4 mg/dl (0.2-1); Calcium 7.9 mg/dl (8.5-10.1); Creatinine Clr Calc Pharmacy 101.1 ml/min; Est GFR (African American) 143.2; Est GFR (Non-African American) 123.6; Globulin 3.1 gm/dl (2.5-4.0); Potassium 4.6 mmol/L (3.5-5.1); Total Protein 6.2 gm/dl (6.4-8.2)
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
--- NOTE | 2020-06-06 15:40 | Hospitalist Progress Note ---
Date of Service June 06, 2020 Assessment & Plan (1) Drug overdose: Advil PM (NSAID-antihistaminic OTC combo agent) Possible Suicidal intent -- BMP stable EKG no arrhythmia -- continue IV fluids Psych consulted, recommend inpatient Psych care when medically stable will complete Gabapentin protocol prior to transfer to 3s if in case patient would like to sign out AMA, 302 needs to completed continue 1:1 observation Alcohol abuse -- no signs of alcohol withdrawal continue alcohol withdrawal protocol Asymptomatic lipase elevation --- lipase elevation resolved -- denies abdominal pain or GI symptoms monitor Hypokalemia -- resolved diarrhea resolved DVT prophylaxis Lovenox subcu Full code Disposition transfer to 3s when medically stable plan of care discussed with patient in detail all questions answered she is understanding, agreeable, comfortable with the plan of care after obtaining consent from the patient, updated patient's mother Francia over the phone all questions answered she is understanding, agreeable, comfortable with the plan of care Admission and Anticipated Discharge Date Admission Date: June 06, 2020 Subjective ff up for Advil PM overdose, possible suicidal intent seen with SHRIMP BOAT CAPTAIN at bedside throughout whole encounter sitting up in bed, comfortable, watching TV, pleasant, smiling states she feels fine today denies headache, dizziness, chest pain, dyspnea, palpitations, abdominal pain ,nausea/vomiting denies anxiety, tremors, hallucinations no other symptoms Review of Systems Review of Systems: All systems reviewed & are unremarkable except as noted in HPI & below Physical Exam Physical Exam: General- oriented x 3, not in distress, speaks in sentences with no effort or accessory muscle use Head- atraumatic Eyes- PERRL, EOMI, anicteric ENT- oropharynx clear Neck- supple, no JVD, no adenopathy, no thyromegaly; carotids +2/2, no bruits appreciated Lungs- clear to auscultation bilaterally, no rales/wheezes Heart- normal rate, regular rhythm; no murmur, no gallop, no rub appreciated Abdomen- normal bowel sounds, nondistended, soft, nontender, no masses or hepatosplenomegaly Extremities- no pretibial edema, no calf tenderness; peripheral pulses intact Neuro- alert, oriented x 3; CN 2-12 grossly intact; motor 5/5 bilaterally;sensation 100% on all extremities; no other gross focal neurologic deficits Skin- warm & dry Results & Data Results & Data ([place]) Vital Signs (Past 12 Hours) Vital Signs Temp Pulse Pulse Resp BP Pulse Ox 06/06/20 15:26 37.2 C 71 18 145/87 H 97 06/06/20 07:27 70 06/06/20 07:09 36.9 C 70 16 102/64 98 06/06/20 04:54 70 Laboratory Results Laboratory Results - last 24 hr 06/05/20 06/05/20 06/05/20 22:33 22:33 22:33 WBC 6.52 RBC 4.55 Hgb 15.0 Hct 42.9 MCV 94.3 MCH 33.0 MCHC 35.0 RDW Std Deviation 42.8 RDW Coeff of Arun 12.6 Plt Count 218 MPV 10.5 H Immature Gran % (Auto) 0.2 Neut % (Auto) 52.6 Lymph % (Auto) 36.0 [place] % (Auto) 10.3 Eos % (Auto) 0.6 Baso % (Auto) 0.3 Neut # (Auto) 3.43 Lymph # (Auto) 2.35 [place] # (Auto) 0.67 H Eos # (Auto) 0.04 Baso # (Auto) 0.02 Immature Gran # (Auto) 0.01 PT 11.4 INR 1.1 Sodium 138 Potassium 2.7 L Chloride 106 Carbon Dioxide 25 Anion Gap 7.0 BUN 6 L Creatinine 0.91 Est Cr Clr Drug Dosing 81.1 Est GFR ( Amer) 103.8 Est GFR (Non-Af Amer) 89.6 BUN/Creatinine Ratio 6.8 L Glucose 126 H Estimat Average Glucose Hemoglobin A1c Calcium 9.1 Magnesium 2.6 H Total Bilirubin 0.4 AST 22 ALT 19 Alkaline Phosphatase 89 Troponin I < 0.015 Total Protein 8.7 H Albumin 4.4 Globulin 4.3 H Albumin/Globulin Ratio 1.0 Lipase 1223 H TSH 1.040 HCG, Qual Urine Color Urine Appearance Urine pH Ur Specific [place] Urine Protein Urine Glucose (UA) Urine Ketones Urine Blood Urine Nitrite Urine Bilirubin Urine Urobilinogen Ur Leukocyte Esterase Salicylates Urine Opiates Screen Ur Methadone, Qual Acetaminophen Urine Barbiturates Ur Phencyclidine (PCP) U Amphetamin/Meth Scrn MDMA (Ecstasy) Screen U Benzodiazepines Scrn Ur Cocaine Metabolite U Marijuana (THC) Screen Ethyl Alcohol mg/dL 06/05/20 06/05/20 06/05/20 22:33 22:33 22:36 WBC RBC Hgb Hct MCV MCH MCHC RDW Std Deviation RDW Coeff of Arun Plt Count MPV Immature Gran % (Auto) Neut % (Auto) Lymph % (Auto) [place] % (Auto) Eos % (Auto) Baso % (Auto) Neut # (Auto) Lymph # (Auto) [place] # (Auto) Eos # (Auto) Baso # (Auto) Immature Gran # (Auto) PT INR Sodium Potassium Chloride Carbon Dioxide Anion Gap BUN Creatinine Est Cr Clr Drug Dosing Est GFR ( Amer) Est GFR (Non-Af Amer) BUN/Creatinine Ratio Glucose Estimat Average Glucose Hemoglobin A1c Calcium Magnesium Total Bilirubin AST ALT Alkaline Phosphatase Troponin I Total Protein Albumin Globulin Albumin/Globulin Ratio Lipase TSH HCG, Qual Negative Urine Color Urine Appearance Urine pH Ur Specific [place] Urine Protein Urine Glucose (UA) Urine Ketones Urine Blood Urine Nitrite Urine Bilirubin Urine Urobilinogen Ur Leukocyte Esterase Salicylates < 1.7 L Urine Opiates Screen Ur Methadone, Qual Acetaminophen < 2 L Urine Barbiturates Ur Phencyclidine (PCP) U Amphetamin/Meth Scrn MDMA (Ecstasy) Screen U Benzodiazepines Scrn Ur Cocaine Metabolite U Marijuana (THC) Screen Ethyl Alcohol mg/dL 341.3 H 06/05/20 06/05/20 06/06/20 22:45 22:45 08:18 WBC RBC Hgb Hct MCV MCH MCHC RDW Std Deviation RDW Coeff of Arun Plt Count MPV Immature Gran % (Auto) Neut % (Auto) Lymph % (Auto) [place] % (Auto) Eos % (Auto) Baso % (Auto) Neut # (Auto) Lymph # (Auto) [place] # (Auto) Eos # (Auto) Baso # (Auto) Immature Gran # (Auto) PT INR Sodium Potassium Chloride Carbon Dioxide Anion Gap BUN Creatinine Est Cr Clr Drug Dosing Est GFR ( Amer) Est GFR (Non-Af Amer) BUN/Creatinine Ratio Glucose Estimat Average Glucose 94 Hemoglobin A1c 4.9 Calcium Magnesium Total Bilirubin AST ALT Alkaline Phosphatase Troponin I Total Protein Albumin Globulin Albumin/Globulin Ratio Lipase TSH HCG, Qual Urine Color Yellow Urine Appearance Clear Urine pH 6.5 Ur Specific [place] 1.006 Urine Protein Negative Urine Glucose (UA) Negative Urine Ketones Negative Urine Blood Negative Urine Nitrite Negative Urine Bilirubin Negative Urine Urobilinogen Negative Ur Leukocyte Esterase Negative Salicylates Urine Opiates Screen Neg Ur Methadone, Qual Neg Acetaminophen Urine Barbiturates Neg Ur Phencyclidine (PCP) Neg U Amphetamin/Meth Scrn Neg MDMA (Ecstasy) Screen Neg U Benzodiazepines Scrn Neg Ur Cocaine Metabolite Neg U Marijuana (THC) Screen Neg Ethyl Alcohol mg/dL 06/06/20 06/06/20 06/06/20 08:18 08:18 08:18 WBC 5.19 RBC 3.75 L Hgb 12.2 Hct 37.0 MCV 98.7 MCH 32.5 MCHC 33.0 RDW Std Deviation 46.1 RDW Coeff of Arun 12.9 Plt Count 184 MPV 10.0 Immature Gran % (Auto) 0.2 Neut % (Auto) 39.5 Lymph % (Auto) 48.4 [place] % (Auto) 10.0 Eos % (Auto) 1.5 Baso % (Auto) 0.4 Neut # (Auto) 2.05 Lymph # (Auto) 2.51 [place] # (Auto) 0.52 Eos # (Auto) 0.08 Baso # (Auto) 0.02 Immature Gran # (Auto) 0.01 PT INR Sodium 145 D Potassium 4.6 D Chloride 115 H Carbon Dioxide 26 Anion Gap 4.0 BUN 4 L Creatinine 0.69 Est Cr Clr Drug Dosing 101.1 Est GFR ( Amer) 143.2 Est GFR (Non-Af Amer) 123.6 BUN/Creatinine Ratio 5.7 L Glucose 87 Estimat Average Glucose Hemoglobin A1c Calcium 7.9 L Magnesium Total Bilirubin 0.4 AST 18 ALT 16 Alkaline Phosphatase 60 Troponin I Total Protein 6.2 L D Albumin 3.1 L Globulin 3.1 Albumin/Globulin Ratio 1.0 Lipase 145 TSH HCG, Qual Urine Color Urine Appearance Urine pH Ur Specific [place] Urine Protein Urine Glucose (UA) Urine Ketones Urine Blood Urine Nitrite Urine Bilirubin Urine Urobilinogen Ur Leukocyte Esterase Salicylates Urine Opiates Screen Ur Methadone, Qual Acetaminophen Urine Barbiturates Ur Phencyclidine (PCP) U Amphetamin/Meth Scrn MDMA (Ecstasy) Screen U Benzodiazepines Scrn Ur Cocaine Metabolite U Marijuana (THC) Screen Ethyl Alcohol mg/dL
[2020-06-07] MEDS: LACTATED RINGER'S 1,000 ML IV SCH (01:35)
[2020-06-07] MEDS: GABAPENTIN 600 MG TAB PO SCH ×2 (06:37→14:10)
[2020-06-07] MEDS ORDERED: THIAMINE HCL 100 MG TAB PO SCH (09:00)
[2020-06-07] MEDS: ENOXAPARIN INJ 30 MG/0.3 ML SYR SQ SCH (09:19)
[2020-06-07] MEDS: SERTRALINE HCL 50 MG TABLET PO SCH (09:19)
[2020-06-07] MEDS: FOLIC ACID 1 MG TAB PO SCH (09:21)
[2020-06-07 12:55] LABS: Basophils # (auto) 0.01 K/uL (0-0.2); Basophils % (auto) 0.2 %; Eosinophils % (auto) 1.7 %; Hemoglobin 13.1 g/dL (12.0-16.0); Immature Granulocytes # (auto) 0.01 K/uL (0.00-0.02); Immature Granulocytes % (auto) 0.2 %; Lymphocytes # (auto) 1.62 K/uL (1.2-3.4); Lymphocytes % (auto) 27.4 %; Mean Corpuscular Hemoglobin 32.9 pg (25-34); Monocytes # (auto) 0.39 K/uL (0.11-0.59); Monocytes % (auto) 6.6 %; Neutrophils # (auto) 3.78 K/uL (1.4-6.5); Neutrophils % (auto) 63.9 %; Platelet Count 175 K/uL (130-400); RDW Coefficient of Variation 12.7 % (11.5-14.5); RDW Standard Deviation 45.5 fL (36.4-46.3); Red Blood Count 3.98 M/uL (4.2-5.4); White Blood Count 5.91 K/uL (4.8-10.8)
[2020-06-07 13:02] LABS: Mean Corpuscular Hgb Conc 33.6 g/dL (32-36)
[2020-06-07 13:13] LABS: BUN Creatinine Ratio 9.5 (10-20); Calcium 8.4 mg/dl (8.5-10.1); Creatinine Clr Calc Pharmacy 88.3 ml/min; Est GFR (African American) 123.2; Est GFR (Non-African American) 106.3; Potassium 3.6 mmol/L (3.5-5.1)
--- NOTE | 2020-06-07 13:29 | Hospitalist Progress Note ---
Date of Service June 07, 2020 Assessment & Plan (1) Drug overdose: Advil PM (NSAID-antihistaminic OTC combo agent) Overdose Possible Suicidal intent -- BMP remains stable EKG no arrhythmia -- patient counseled on proper medication intake -- Psych consulted, recommend inpatient Psych care Alcohol abuse -- no signs of alcohol withdrawal or DTs will complete Gabapentin taper protocol on Wednesday anticipate patient will do fine counseled strongly against alcohol use and illicit drug use -- please do not hesitate to call/consult [facility] Hospitalist Service if needed Asymptomatic lipase elevation -- likely from alcohol use --- lipase elevation resolved 1223 to 145 -- denies abdominal pain or GI symptoms Hypokalemia -- resolved diarrhea resolved Disposition transfer to for continuation of Psych care ff up with PCP 1 week after discharge from the hospital plan of care discussed with patient in detail all questions answered she is understanding, agreeable, comfortable with the plan of care Admission and Anticipated Discharge Date Admission Date: June 06, 2020 Subjective ff up for advil overdose, possible suicidal intent seen with HONING MACHINE OPERATOR SEMIAUTOMATIC at bedside throughout whole encounter sitting up in bed, comfortable, in good spirits smiling, very pleasant states she feels fine denies headache, dizziness, chest pain, dyspnea, palpitations, nausea/vomiting, abdominal pain denies anxiety, tremors, hallucinations, sweating states mood is fine today, denies feeling depressed no other symptoms states she is back to her baseline states she is ready for transfer to Behavioral health unit Review of Systems Review of Systems: All systems reviewed & are unremarkable except as noted in HPI & below Physical Exam Physical Exam: General- oriented x 3, not in distress, speaks in sentences with no effort or accessory muscle use Eyes- anicteric Neck- no JVD Lungs- clear breath sounds bilaterally, no rales/wheezes Heart- normal rate, regular rhythm; no murmurs Abdomen- normal bowel sounds, nondistended, soft, nontender Extremities- no pretibial edema, no calf tenderness Neuro- alert, oriented x 3; no gross focal neurologic deficits Skin- warm & dry Results & Data Results & Data ([facility]) Vital Signs (Past 12 Hours) Vital Signs Temp Pulse Pulse Resp BP BP Pulse Ox 06/07/20 11:27 36.9 C 65 20 110/75 97 06/07/20 07:17 57 L 06/07/20 07:16 36.8 C 56 L 20 110/67 97 06/07/20 03:35 36.6 C 61 18 107/69 98 Laboratory Results Laboratory Results - last 24 hr 06/07/20 06/07/20 12:47 12:47 WBC 5.91 RBC 3.98 L Hgb 13.1 Hct 39.0 MCV 98.0 MCH 32.9 MCHC 33.6 RDW Std Deviation 45.5 RDW Coeff of Arun 12.7 Plt Count 175 MPV 10.0 Immature Gran % (Auto) 0.2 Neut % (Auto) 63.9 Lymph % (Auto) 27.4 [place] % (Auto) 6.6 Eos % (Auto) 1.7 Baso % (Auto) 0.2 Neut # (Auto) 3.78 Lymph # (Auto) 1.62 [place] # (Auto) 0.39 Eos # (Auto) 0.10 Baso # (Auto) 0.01 Immature Gran # (Auto) 0.01 Sodium 140 Potassium 3.6 D Chloride 107 Carbon Dioxide 27 Anion Gap 6.0 BUN 7 Creatinine 0.79 Est Cr Clr Drug Dosing 88.3 Est GFR ( Amer) 123.2 Est GFR (Non-Af Amer) 106.3 BUN/Creatinine Ratio 9.5 L Glucose 101 H Calcium 8.4 L
--- NOTE | 2020-06-07 13:48 | Discharge Summary ---
Date of Service June 07, 2020 Admission HPI Per Admitting Provider History obtained from patient and records. Medical history significant for GERD, anxiety/mood disorder, alcohol abuse. Last confinement March 2017 for complicated UTI. 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 Patient took 10 tablets of Advil PM along with some alcohol because she wanted to relax and she was out of her Ativan. Denies suicidal intent. Patient denies chest pain, S OB, abdominal pain. Loose stools, nonbloody. Recent outpatient COVID 19 swab (routine workplace requirement) from 06/03 was negative as per patient. Patient later on told mother of drug ingestion. Patient brought to the ER for evaluation. Medical History as above No prior history of alcohol withdrawal seizures. Surgical History : Discussed doing reconstruction Family History : Diabetes, breast cancer, lung cancer, kidney stones Personal/Social history : Non-smoker, alcohol abuse, [employer] Admission Exam Per Admitting Provider GENERAL: Somewhat restless, no respiratory distress, episodic facial grimacing/left eye pronounced blinking (chronic as per patient) SKIN: Normal color, warm HEENT: Grace palpebral conjunctivae, no ptosis, dry buccal mucosa NECK : Supple, no tenderness CHEST : CTA, no tenderness HEART : RRR, no obvious murmurs ABDOMEN: Soft, nontender EXTREMITIES : No LE swelling/tenderness, no other conspicuous deformities noted NEUROLOGIC : Coherent, no facial asymmetry, no other gross focality Principal Diagnosis ADVIL OVERDOSE POSSIBLE SUICIDAL INTENT Discharge Exam General- oriented x 3, not in distress, speaks in sentences with no effort or accessory muscle use Eyes- anicteric Neck- no JVD Lungs- clear breath sounds bilaterally, no rales/wheezes Heart- normal rate, regular rhythm; no murmurs Abdomen- normal bowel sounds, nondistended, soft, nontender Extremities- no pretibial edema, no calf tenderness Neuro- alert, oriented x 3; no gross focal neurologic deficits Skin- warm & dry Discharge Data Allergies Allergy/AdvReac Type Severity Reaction Status Date / Time No Known Allergies Allergy Verified 06/05/20 23:04 Consultations 06/06/20 04:02 Consult Case Management - Discharge Planning Routine Consult Psychiatry Routine Hospital Course (1) Drug overdose: Advil PM (NSAID-antihistaminic OTC combo agent) Overdose Possible Suicidal intent -- lab work remains stable EKG no arrhythmia -- no abdominal pain, nausea/vomiting or any other GI symptoms -- patient counseled on proper medication intake -- Psych consulted, recommend inpatient Psych care cleared for transfer to today for continuation of Psych Care Alcohol abuse -- no signs of alcohol withdrawal or DTs will complete Gabapentin taper protocol on Wednesday anticipate patient will do fine at the Behavioral Unit counseled strongly against alcohol use and illicit drug use -- further management per Psych [facility] -- please do not hesitate to [facility] Asymptomatic lipase elevation -- likely from alcohol use --- lipase elevation resolved 1223 to 145 -- denies abdominal pain or GI symptoms Hypokalemia -- resolved diarrhea resolved Disposition transfer to for continuation of Psych care ff up with PCP 1 week after discharge from the hospital plan of care discussed with patient in detail all questions answered she is understanding, agreeable, comfortable with the plan of care Total Time Total Time Spent Total Time Spent (In Minutes): 50 minutes Discharge Plan Discharge Items Reason For Visit: DRUG OVERDOSE Discharge Diagnosis: ADVIL OVERDOSE POSSIBLE SUICIDAL INTENT Activity: Resume your previous activity Lifting: None Bathing: No limitations Exercise/Sports: None Driving/Machine Use: NO DRIVING UNTIL RE-EVALUTED AND ALLOWED BY PRIMARY CARE PHYSICIAN Non-emergency contact: Primary Care Provider and Psychiatrist Call non-emergency contact if: you have any medication questions Follow-up/Referrals: Juju Castellanos DO [Primary Care Provider] - Diet: Regular Addtl Attending Provider Instructions: PLEASE FOLLOW UP WITH PRIMARY CARE PHYSICIAN 1 WEEK AFTER DISCHARGE FROM THE HOSPITAL. FOLLOW UP WITH YOUR PSYCHIATRIST CLOSELY AND REGULARLY. DRINK PLENTY OF WATER. CALL PRIMARY CARE PHYSICIAN OR RETURN TO THE ER IMMEDIATELY IF YOU ARE HAVING ABDOMINAL PAIN, NAUSEA/VOMITING, PROBLEMS WITH URINATION, FEVER/CHILLS. Pending Studies at Discharge: No Stand-Alone Forms: My [employer], Smoking Cessation, Suicide Prevention Resources Medications and DC Order Prescriptions: New gabapentin 600 mg Tablet 600 mg PO Q12H Qty: 2 RF: 0 gabapentin 600 mg Tablet 600 mg PO Q24H Qty: 1 RF: 0 thiamine HCl (vitamin B1) [Vitamin B-1] 100 mg Tablet 100 mg PO QAM Qty: 7 RF: 0 folic acid 1 mg Tablet 1 mg PO QAM Qty: 7 RF: 0 multivitamin Tablet 1 tab PO DAILY Qty: 30 RF: 0 Continued sertraline [Zoloft] 50 mg tablet 75 mg PO QAM RF: 0 Nexplanon 68 mg implant 68 mg SUBDERMAL CONTINOUS RF: 0 Discontinued lorazepam [Ativan] 0.5 mg Tablet 0.5 mg PO DAILY PRN (Reason: Anxiety) RF: 0 Admission Data Admit Date/Time: 06/06/20 01:21 Attending Provider: Kyle Du Admit Provider: Pawel Dsouza Primary Care Provider: Juju Castellanos Other Providers: Hannah Mcpherson
[2020-06-08] MEDS ORDERED: GABAPENTIN 600 MG TAB PO SCH (01:24)
[2020-06-09] MEDS ORDERED: GABAPENTIN 600 MG TAB PO SCH (13:24)
== END 2020-06-07 14:54 | DRG 917 ==
LOC: ED 22:10 → 2W 06-06 01:21

== ENCOUNTER 2020-06-07 14:12 | Inpatient (IN) ==
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
[2020-06-07] MEDS ORDERED: ACETAMINOPHEN 325 MG TAB PO PRN (16:00)
[2020-06-07] MEDS ORDERED: BISMUTH SUBSALICYLATE PER ML OMNICELL CHARGE PO PRN (16:00)
[2020-06-07] MEDS ORDERED: SODIUM CHLORIDE 0.65% NA SOLN 45 ML (OCEAN) PRN (16:00)
[2020-06-07] MEDS ORDERED: MAGNESIUM HYDROXIDE SUSP 30 ML UDC PO PRN (16:00)
[2020-06-07] MEDS ORDERED: ALUMINUM/MAGNESIUM SUSP 30 ML UDC PO PRN (16:00)
[2020-06-07] MEDS ORDERED: NON-FORMULARY MEDICATION (Etonogestrel [Nexplanon] 68 MG) SUBD SCH (16:15)
[2020-06-07] MEDS: GABAPENTIN 600 MG TAB PO SCH (21:50)
[2020-06-07] MEDS: TRAZODONE HCL 50 MG TAB PO SCH (21:50)
[2020-06-08] MEDS: GABAPENTIN 600 MG TAB PO SCH ×2 (09:58→21:08)
[2020-06-08] MEDS: FOLIC ACID 1 MG TAB PO SCH (09:58)
[2020-06-08] MEDS: SERTRALINE HCL 50 MG TABLET PO SCH (09:58)
[2020-06-08] MEDS: THIAMINE HCL 100 MG TAB PO SCH (09:58)
[2020-06-08] MEDS: MULTIVITAMIN TAB PO SCH (09:58)
--- NOTE | 2020-06-08 11:31 | Psychiatric Progress Note ---
Date of Service June 08, 2020 Impression / Recommendations Impression 20-year-old female who presented to the ED on 06/05/2020 s/p intentional drug overdose. Pt was admitted medically from 06/06 - 06/07 and was ultimately transferred to our unit for voluntarily psychiatric admission on 06/07/2020. Pt admits to a history of depression and has been taking sertraline since 12/2019. Pt does admit to episodes of self-harm by overdose on numerous occasions, and was admitted to the [facility] in 12/2019 after holding a gun to her head. Pt is now stating that she did not take the 10-12 tablets of Advil PM with the intent to end her life, but was not forthcoming with this information while on the medical floor. She also has fallen out of treatment with outpatient psychiatric providers. Pt does wish to continue her home medication regimen of sertraline 75mg and trazodone 50mg. She is willing to trial hydroxyzine, hoping this will be effective and she will no longer require the lorazepam. Pt is willing for referrals to outpatient psychiatric providers and is agreeable with inviting her parents to participate in a phone session to discuss discharge and safety planning. As risk factors could not be adequately mitigated while on the medical floor, inpatient psychiatric hospitalization is medically necessary due to risk of harm to self if she is discharged prematurely. 06/08 reviewed, mood improved. (1) Drug overdose: 06/07 - Pt stabilized and medically cleared from the medical floor prior to transfer (2) Depression: 06/07 - Admitted to a locked inpatient behavioral health unit, on q15 minute safety checks - Continue sertraline 75mg and trazodone 50mg - home medication regimen - Encourage participation in group and recreational therapies - Gather collateral information from previous inpatient hospitalizations and outpatient treatment - Suggest family meeting to involve outpatient supports in safety planning - Arrange appropriate aftercare 06/08--continue current meds and treatment plan. Reviewed not combining trazodone with ETOH and preference she abstain from ETOH. (3) Panic attacks: 06/07 - Continue sertraline as above - Encourage utilization of hydroxyzine for anxiety as needed Risk Factors Assessment Male: No : Yes Do You Have Access To A Gun?: No Health Problems: No Mental Health Diagnoses: Yes Substance Use Disorders: Yes Previous Attempt: Yes Family History of Suicide: No Previous Psychiatric Hospitalization: Yes Smoker: Yes Protective Factors Assessment Congregational Beliefs: No : No Responsible for Young Children: No Employed: No Supportive Family: Yes Interval History Chief Complaint "in some ways losing my job has been a relief as main source of my stress". Review of Systems Sleep Information Total Hours of Sleep: 5 Meal Information Percent Meal Consumed - Dinner: 80 Subjective Subjective Patient was seen & assessed and interval progress reviewed with nursing and social work. States she liked work overall but had difficulty with DON. She has been enjoying time with her 8 month old sebastian retriever and 12 weeks old kitten currently being cared for by boyfriend and sister. She denies SI, states that after drinking 2-4 drinks she wanted to get sleep so she could get up weed her garden so took unknown amount of Advil pm. Denies intent or plan to harm self but obviously added to the confusion. Reviewed disinhibiting effects of ETOH with SSRIs and effect of ETOH on depression as hospitalization at [facility] was predated by daily drinking. Physical Exam Psychiatric Orientation: alert, oriented x 3 and cooperative (and pleasant) Apperance: appropriately dressed, appropriately groomed and appeared stated age Eye Contact: good eye contact Speech: normal rate/rhythm/volume of speech Affect: euthymic affect and mood congruent with affect Mood: no depressed mood and no anxious mood Thought Process: goal directed thought process, clear/coherent thought process and thought association intact Thought Content: reality based without delusions Suicidal Thoughts: denies suicidal thoughts Homicidal Thoughts: denies homicidal thoughts Hallucinations: no auditory hallucinations and no visual hallucinations Cognition: recent memory grossly intact, attention grossly intact and language grossly intact Estimated Intelligence: consistent with education level Insight: + fair insight Judgement: + fair judgement Vital Signs (Past 24 Hours) Last Vital Signs Temp 36.6 C 06/08/20 06:35 Pulse 70 06/08/20 06:36 Resp 18 06/08/20 06:35 BP 106/69 06/08/20 06:36 Pulse Ox 97 06/07/20 17:09 Results & Data ([facility]) Current Inpatient Medications Current Inpatient Medications: Current Inpatient Medications Acetaminophen (Tylenol) 650 mg PO Q4H PRN PRN Reason: Headache or Minor Fever Stop: 07/07/20 15:59 Al Hydrox/Mg Hydrox/Simethicone (Maalox) 30 ml PO Q4H PRN PRN Reason: GI Upset Stop: 07/07/20 15:59 Bismuth Subsalicylate (Kaopectate) 15 ml PO PRN PRN PRN Reason: Loose Stool Stop: 07/07/20 15:59 Folic Acid (Folvite) 1 mg PO QAM JOSE Stop: 07/08/20 08:59 Last Admin: 06/08/20 09:58 Dose: 1 mg Documented by: Gabapentin (Neurontin) 600 mg PO Q12H JOSE Stop: 06/08/20 20:01 Last Admin: 06/08/20 09:58 Dose: 600 mg Documented by: Hydroxyzine HCl (Vistaril) 50 mg PO HSZ PRN PRN Reason: Insomnia Stop: 07/07/20 15:59 Hydroxyzine HCl (Vistaril) 25 mg PO Q4H PRN PRN Reason: Anxiety Stop: 07/07/20 15:59 Magnesium Hydroxide (Milk Of Magnesia) 30 ml PO DAILY PRN PRN Reason: Constipation Stop: 07/07/20 15:59 Multivitamins (Multivitamin Tab) 1 tab PO DAILY JOSE Stop: 07/08/20 08:59 Last Admin: 06/08/20 09:58 Dose: 1 tab Documented by: Nicotine Polacrilex (Nicorette 2mg) 1 piece MT PRN PRN PRN Reason: smoking withdrawal Stop: 07/07/20 19:00 Sertraline HCl (Zoloft) 75 mg PO QAM JOSE Stop: 07/08/20 08:59 Last Admin: 06/08/20 09:58 Dose: 75 mg Documented by: Sodium Chloride ([place] Nasal) 1 - 2 sprays NA PRN PRN PRN Reason: Nasal Dryness/Congestion Stop: 07/07/20 15:59 Thiamine HCl (Vitamin B-1) 100 mg PO QAM JOSE Stop: 07/08/20 08:59 Last Admin: 06/08/20 09:58 Dose: 100 mg Documented by: Trazodone HCl (Desyrel) 50 mg PO HS JOSE Stop: 07/07/20 21:59 Last Admin: 06/07/20 21:50 Dose: 50 mg Documented by: Post Discharge Appointments Primary Care Physician Name Of Family Doctor: Javi Gonzales (1) Depression Depression Type: major depressive disorder Major depression recurrence: recurrent Active/Remission status: currently active Major depression episode severity: severe Psychotic features: without psychotic features Qualified Code(s): F33.2 - Major depressive disorder, recurrent severe without psychotic features
[2020-06-08] MEDS: NICOTINE POLACRILEX 2 MG GUM MT PRN ×4 (11:50→21:46)
[2020-06-08] MEDS: TRAZODONE HCL 50 MG TAB PO SCH (22:46)
[2020-06-09] MEDS: MULTIVITAMIN TAB PO SCH (08:48)
[2020-06-09] MEDS: SERTRALINE HCL 50 MG TABLET PO SCH (08:48)
[2020-06-09] MEDS: THIAMINE HCL 100 MG TAB PO SCH (08:48)
[2020-06-09] MEDS: FOLIC ACID 1 MG TAB PO SCH (08:48)
[2020-06-09] MEDS: NICOTINE POLACRILEX 2 MG GUM MT PRN ×2 (11:17→15:19)
--- NOTE | 2020-06-09 13:25 | Psychiatric Progress Note ---
Date of Service June 09, 2020 Impression / Recommendations Impression 20-year-old female who presented to the ED on 06/05/2020 s/p intentional drug overdose. Pt was admitted medically from 06/06 - 06/07 and was ultimately transferred to our unit for voluntarily psychiatric admission on 06/07/2020. Pt admits to a history of depression and has been taking sertraline since 12/2019. Pt does admit to episodes of self-harm by overdose on numerous occasions, and was admitted to the [facility] in 12/2019 after holding a gun to her head. Pt is now stating that she did not take the 10-12 tablets of Advil PM with the intent to end her life, but was not forthcoming with this information while on the medical floor. She also has fallen out of treatment with outpatient psychiatric providers. Pt does wish to continue her home medication regimen of sertraline 75mg and trazodone 50mg. She is willing to trial hydroxyzine, hoping this will be effective and she will no longer require the lorazepam. Pt is willing for referrals to outpatient psychiatric providers and is agreeable with inviting her parents to participate in a phone session to discuss discharge and safety planning. As risk factors could not be adequately mitigated while on the medical floor, inpatient psychiatric hospitalization is medically necessary due to risk of harm to self if she is discharged prematurely. 06/08 reviewed, mood improved. 06/09--continue current meds and treatment plan. Risk Factors Assessment Male: No : Yes Do You Have Access To A Gun?: No Health Problems: No Mental Health Diagnoses: Yes Substance Use Disorders: Yes Previous Attempt: Yes Family History of Suicide: No Previous Psychiatric Hospitalization: Yes Smoker: Yes Protective Factors Assessment Gnosticist Beliefs: No : No Responsible for Young Children: No Employed: No Supportive Family: Yes Interval History Chief Complaint "I broke my mom's heart, I want to get my act together". Review of Systems Sleep Information Total Hours of Sleep: 5.5 Sleep Comments: asleep by 0030-watched tv/talked with peers till midnight. Meal Information Percent Meal Consumed - Breakfast: 75 Percent Meal Consumed - Lunch: 100 Percent Meal Consumed - Dinner: 80 Subjective Subjective Patient was seen & assessed and interval progress reviewed with nursing and social work. Patient has been more open re: her problematic drinking and did have a family meeting. Is interacting well with peers and denies SI. Physical Exam Psychiatric Orientation: alert, oriented x 3 and cooperative (and pleasant) Apperance: appropriately dressed, appropriately groomed and appeared stated age Eye Contact: good eye contact Speech: normal rate/rhythm/volume of speech Affect: euthymic affect and mood congruent with affect Mood: no depressed mood and no anxious mood Thought Process: goal directed thought process, clear/coherent thought process and thought association intact Thought Content: reality based without delusions and + guilt Suicidal Thoughts: denies suicidal thoughts Homicidal Thoughts: denies homicidal thoughts Hallucinations: no auditory hallucinations and no visual hallucinations Cognition: recent memory grossly intact, attention grossly intact and language grossly intact Estimated Intelligence: consistent with education level Insight: + fair insight Judgement: + fair judgement Vital Signs (Past 24 Hours) Last Vital Signs Temp 36.6 C 06/09/20 06:33 Pulse 66 06/09/20 06:33 Resp 18 06/09/20 06:33 BP 99/63 L 06/09/20 06:33 Pulse Ox 97 06/07/20 17:09 Results & Data ([facility]) Current Inpatient Medications Current Inpatient Medications: Current Inpatient Medications Acetaminophen (Tylenol) 650 mg PO Q4H PRN PRN Reason: Headache or Minor Fever Stop: 07/07/20 15:59 Al Hydrox/Mg Hydrox/Simethicone (Maalox) 30 ml PO Q4H PRN PRN Reason: GI Upset Stop: 07/07/20 15:59 Bismuth Subsalicylate (Kaopectate) 15 ml PO PRN PRN PRN Reason: Loose Stool Stop: 07/07/20 15:59 Folic Acid (Folvite) 1 mg PO QAM JOSE Stop: 07/08/20 08:59 Last Admin: 06/09/20 08:48 Dose: 1 mg Documented by: Hydroxyzine HCl (Vistaril) 50 mg PO HSZ PRN PRN Reason: Insomnia Stop: 07/07/20 15:59 Hydroxyzine HCl (Vistaril) 25 mg PO Q4H PRN PRN Reason: Anxiety Stop: 07/07/20 15:59 Last Admin: 06/08/20 21:09 Dose: 25 mg Documented by: Magnesium Hydroxide (Milk Of Magnesia) 30 ml PO DAILY PRN PRN Reason: Constipation Stop: 07/07/20 15:59 Multivitamins (Multivitamin Tab) 1 tab PO DAILY JOSE Stop: 07/08/20 08:59 Last Admin: 06/09/20 08:48 Dose: 1 tab Documented by: Nicotine Polacrilex (Nicorette 2mg) 1 piece MT PRN PRN PRN Reason: smoking withdrawal Stop: 07/07/20 19:00 Last Admin: 06/09/20 11:17 Dose: 1 piece Documented by: Sertraline HCl (Zoloft) 75 mg PO QAM JOSE Stop: 07/08/20 08:59 Last Admin: 06/09/20 08:48 Dose: 75 mg Documented by: Sodium Chloride ([place] Nasal) 1 - 2 sprays NA PRN PRN PRN Reason: Nasal Dryness/Congestion Stop: 07/07/20 15:59 Thiamine HCl (Vitamin B-1) 100 mg PO QAM OJSE Stop: 07/08/20 08:59 Last Admin: 06/09/20 08:48 Dose: 100 mg Documented by: Trazodone HCl (Desyrel) 50 mg PO HS [facility] Stop: 07/07/20 21:59 Last Admin: 06/08/20 22:46 Dose: 50 mg Documented by: Post Discharge Appointments Primary Care Physician Name Of Family Doctor: Javi Gonzalesefonte
[2020-06-09] MEDS: TRAZODONE HCL 50 MG TAB PO SCH (22:53)
[2020-06-10] MEDS: SERTRALINE HCL 50 MG TABLET PO SCH (08:29)
[2020-06-10] MEDS: MULTIVITAMIN TAB PO SCH (08:30)
[2020-06-10] MEDS: THIAMINE HCL 100 MG TAB PO SCH (08:30)
[2020-06-10] MEDS: FOLIC ACID 1 MG TAB PO SCH (08:30)
--- NOTE | 2020-06-10 09:44 | Discharge Summary ---
Date of Service June 10, 2020 History of Present Illness per admitting provider: Beto Summers is a 20-year-old female admitted voluntarily for inpatient psychiatric treatment upon transfer from the medical floor s/p intentional overdose. Pt was initially treated medically after presenting to the ED on 06/05/2020 s/p intentional overdose. 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 On presentation, patient's BAL was 341. Pt was admitted medically due to concern for alcohol withdrawal, overdose, hypokalemia, and possible alcoholic pancreatitis. Psychiatric consultation was requested during that stay to evaluate patient following this suicide attempt and inpatient psychiatric treatment was recommended. Information in italics was obtained from the patient during initial psychiatric consultation: In review of hospital documentation, it appears patient has had numerous presentations to the ED in the last year, nearly all of which have been related in some way to alcohol use. On two occasions (06/2019 and 10/2019) patient had admitted to taking additional prescription medications in combination with alcohol, though denied that this was done with intent to end he r life and was discharged home. Pt was admitted for psychiatric treatment at the [facility] in 12/2019 after holding a gun to her head, also while intoxicated (302 warrant dispoed and patient was admitted voluntarily). On this admission, a 302 Petitioning Statement was completed in the ED by the immigration case manager, and reads: "Beto Summers lost her job on 06/05/2020 and reports she was upset. Patient brought to ED via EMS after an intentional overdose. It was reported by EMS that Beto took Advil PM, Zoloft, and Ativan, plus drank alcohol. Beto reports she took Advil PM and drank alcohol in an attempt to kill herself. Beto reported in the ED that she is depressed and very upset about losing her job." EMS report was reviewed, and it appeared that the patient had called both her mother and her sister after the overdose to say "goodbye and that she loved [them]." Pt's case was reviewed during morning report with psychiatric nurse liaison and supervising psychiatrist. Pt was superficially pleasant during psychiatric assessment, but was not forthcoming and evasive with many questions. Pt was given several generic prompts to explain 'what happened that brought you into the hospital' - responding with vague statements of "I just had like a moment" and "I'm not even sure." Pt did not admit to any of the events documented in the ED notes until direcly and specifically asked by this provider. Pt eventually admits "I was watching TV, and I don't even know what hit me." She states that she "began thinking about things." Despite this provider's request, she is unable to verbalize a timeline of events before and after her overdose, though claims she is able to remember the situation. Pt states she had been drinking prior to taking the pills, but when asked about perceived level of intoxication she states "not even buzzed." At this time, patient states "I don't even know if I was suicidal, I don't think I was", but can offer no explanation for her actions. Pt denies SI presently. When this provider mentions her history of similar presentations to the ED with overdoses of medications, she admits that this is "not good." Pt admits to obvious symptoms of depression and anxiety for the past year, but states these have worsened since 02/2020. Pt reports that work has been a significant stressor and has greatly contributed to her recent anxiety. Pt admits to poor and inconsistent sleep. She reports poor appetite as well, telling this provider she has not eaten any food in the last 3 days. Pt admits to low energy, decreased motivation, and difficulty concentrating. Pt states she was taking 50mg of sertraline until 12/2019 when her dose was increased to 75mg. She feels the medication is mildly beneficial for improving mood and anxiety. She reports she is prescribed lorazepam 0.5mg as needed for anxiety, and takes this only about once a month. PDMP query suggests she was last prescribed #10 tablets in 12/2019. On evaluation today, the patient states she is feeling "anxious." She appears brighter today, and is much more wiling to discuss events leading to her overdose. Pt states, "Not gonna lie, I lost my job. It was really upsetting. It was the same exact day that I did this. I've been there 3.5 years and I loved it, and I had never been fired before. It was hard." When discussing what led to her decision to overdose, the patient states "I wasn't even going to drink...but then I did. I had a lot, and I chugged it - which is not good." Pt states that she had been drinking with her boyfriend, who left the patient's apartment when the patient was ready to go to bed. Pt is now stating that she took the 10-12 pills of Advil PM "because I couldn't sleep - you know, you just get in those spins." Pt states that when she realized she had likely taken too much medication she had called her mom, who called 911. Pt states "my mom had me freaked out that I was gonna . I was so worked up...and still drunk... that I called my sister. I thought 'if I'm going to , I want to say goodbye and tell her I love her'." Pt was able to appreciate that the events were not reported in this way when she presented to the ED, but she did not recall making statements about a suicide attempt. Pt states "I don't know why I did it. My life has really been great. I got put back on my Zoloft 1.5 weeks ago, I'm happy with it. I'd also like to stay on the Trazodone." Pt does report she is willing for psychiatric medication management as well as therapy referrals. Pt denies SI at this time as well as other needs or concerns presently. Physical Exam Mental Examination see admission H&P and day of discharge summary. Vital Signs (Past 24 Hours) Last Vital Signs Temp 36.6 C 06/10/20 06:55 Pulse 77 06/10/20 06:56 Resp 18 06/10/20 06:55 BP 92/55 L 06/10/20 06:56 Pulse Ox 97 06/07/20 17:09 Principal Diagnosis depressive disorder Psychiatric Data see daily care summary. Patient admitted that ETOH plays a large role in more impulsive suicidal behaviors. On unit she essentially denied suicidality stating that she wanted to take benadryl to sleep and was too disorganized from ETOH. She is accepting of D&A outpatient referral. She had a successful family meeting prior to discharge and Zoloft and trazodone were ordered at previously effective doses which she tolerated well throughout her stay. Day of Discharge Assessment Remains alert and cooperative, verbalizes safety plan, future focussed with seeing her pets and perhaps returning to school. Thoughts are organized and she denies SI/HI/story. She is stable for discharge to outpatient level of care. Transition of Care Transition Of Care Record: was reviewed with the patient Advance Directives Advance Directives Information Provided: Yes Advance Directives: No Mental Health Advance Directive: No Advance Directives on File: No Living Will: No Power of Respite Provider: No Advance Directives Reason:: Declines as Mental Health Visit. Risk Factors Assessment Male: No : Yes Do You Have Access To A Gun?: No Health Problems: No Mental Health Diagnoses: Yes Substance Use Disorders: Yes Previous Attempt: Yes Family History of Suicide: No Previous Psychiatric Hospitalization: Yes Smoker: Yes Protective Factors Assessment Restorationism Beliefs: No : No Responsible for Young Children: No Employed: No Supportive Family: Yes Tobacco Cessation at Discharge Tobacco Cessation Medication Prescribed at Discharge: Offered & Pt Refused Total Time Total Time Includes: Examination of the patient, Discharge Planning and Medication Reconciliation Hospital Course (1) Drug overdose: 06/07 - Pt stabilized and medically cleared from the medical floor prior to transfer (2) Depression: 06/07 - Admitted to a locked inpatient behavioral health unit, on q15 minute safety checks - Continue sertraline 75mg and trazodone 50mg - home medication regimen - Encourage participation in group and recreational therapies - Gather collateral information from previous inpatient hospitalizations and outpatient treatment - Suggest family meeting to involve outpatient supports in safety planning - Arrange appropriate aftercare 06/08--continue current meds and treatment plan. Reviewed not combining trazodone with ETOH and preference she abstain from ETOH. (3) Panic attacks: 06/07 - Continue sertraline as above - Encourage utilization of hydroxyzine for anxiety as needed Post Discharge Appointments Primary Care Physician Name Of Family Doctor: Javi Gonzales [place] [facility]ess[facility] Tobacco Cessation Medication Prescribed at Discharge: Offered & Pt Refused Discharge Plan Discharge Items Patient Disposition: Home - Self-Care Reason For Visit: DEPRESSION Discharge Diagnosis: same Activity: Resume your previous activity Non-emergency contact: Primary Care Provider and Therapist Call non-emergency contact if: you have any medication questions and your symptoms worsen Follow-up/Referrals: Juju Castellanos, [Primary Care Provider] - Diet: Regular Addtl Attending Provider Instructions: SPECIAL CARE INSTRUCTIONS: 1. Follow through with your scheduled aftercare appointments. If unable to keep an appointment, please call to reschedule. 2. Take your medication only as prescribed. Medication should not be changed or stopped without the approval of your doctor. In the event of worsening symptoms or concerns about side effects, contact your doctor immediately. 3. Utilize new healthy coping skills, anger management skills, and stress management skills learned during your hospitalization. Journal feelings and process them with a support person. Identify stressors or situations that may result in relapse, deterioration or inappropriate behaviors and develop a plan to deal with those issues. 4. If your coping skills are ineffective and you are in crisis, contact your outpatient providers for direction. If unable to reach your providers, please call the CAN HELP LINE AT or go to the closest Emergency Room. 5. Avoid alcohol and un-prescribed drugs. 6. You have been provided with the Mental Health Advance Directives Pamphlet for your review. AFTERCARE APPOINTMENTS: * Please call your insurance company prior to your scheduled appointment to confirm your aftercare providers are covered. Take your insurance information to your appointments. WHO TO CALL AND WHEN: Medical Emergencies: For questions or emergencies related to your hospital stay, please contact the Inpatient Behavioral Health Unit at [phone]. A proposal review analyst is on-call 31/05 for the Behavioral Health Unit for emergencies At any time you feel your situation is an emergency, you may also call 911 immediately. Your Doctors Instructions noted above were prepared by provider Jane Narayanan MD. Pending Studies at Discharge: No Stand-Alone Forms: [facility], Smoking Cessation Medications and DC Order Prescriptions: Continued multivitamin Tablet 1 tab PO DAILY Qty: 30 RF: 0 trazodone 50 mg Tablet 50 mg PO HS Qty: 30 RF: 0 sertraline [Zoloft] 50 mg tablet 75 mg PO QAM RF: 0 Nexplanon 68 mg implant 68 mg SUBDERMAL CONTINOUS RF: 0 Discontinued thiamine HCl (vitamin B1) [Vitamin B-1] 100 mg Tablet 100 mg PO QAM Qty: 7 RF: 0 folic acid 1 mg Tablet 1 mg PO QAM Qty: 7 RF: 0 Discharge Orders: Discharge Order (Routine); Ordered 06/10/20 Ordered By: Jane Narayanan Admission Data Admit Date/Time: 06/07/20 14:22 Attending Provider: Jane Narayanan Admit Provider: Aiden Cornejo Primary Care Provider: Juju Castellanos Coding Level of Care Code 16919 D/C day mgmt > 30 min Diagnoses Drug overdose T50.901A Depression F33.2 Depression Type: major depressive disorder Major depression recurrence: recurrent Active/Remission status: currently active Major depression episode severity: severe Psychotic features: without psychotic features Panic attacks F41.0
[2020-06-10] MEDS: NICOTINE POLACRILEX 2 MG GUM MT PRN (10:20)
== END 2020-06-10 12:51 | disposition home or self-care (01) | DRG 885 ==
LOC: 3S 14:22